=== PATIENT | female | born 1995 | race African-American/Black ===

== ENCOUNTER 2017-04-20 18:24 | Emergency (ER) | payer MEDICAID ==
[~2017-04-20] VITALS: Ht 160 cm; Wt 69.0 kg
[2017-04-20 23:35] LABS: BASOPHILS % 0.3 % (0.0-2.0); EOSINOPHILS % 1.6 % (0.0-5.0); HEMATOCRIT. 33.2 % (36.0-48.0); HEMOGLOBIN. 11.1 g/dL (12.0-16.0); LYMPHOCYTES % 46.1 % (20.0-50.0); MEAN CORPUSCULAR HEMOGLOBIN 28.9 pg (28.0-32.0); MEAN CORPUSCULAR VOLUME 86.3 fL (81.0-99.0); MEAN PLATELET VOLUME 8.2 fl (7.4-10.4); PLATELET 284 x1000/uL (130-400); RED BLOOD CELL COUNT 3.84 mill/uL (4.2-5.4); RED CELL DISTRIBUTION WIDTH 13.6 % (11.6-14.6)
[2017-04-20 23:41] LABS: CHLORIDE 101 mEq/L (98-107)
[2017-04-20 23:48] LABS: CARBON DIOXIDE 28 mEq/L (21-32)
[2017-04-21 02:30] VITALS: BP 118/75
== END 2017-04-21 02:42 | disposition home or self-care (01) ==
LOC: ER 23:38
DX: R07.9 Chest pain, unspecified (principal)
CPT/HCPCS: 36415; 71010; 80048; 81025; 85025; 85379; 93005; 99285; Z7610

== ENCOUNTER 2018-09-10 16:39 | Emergency (ER) | payer MEDICAID ==
[~2018-09-10] VITALS: Ht 160 cm; Wt 80.0 kg
[2018-09-10 19:45] VITALS: BP 129/70
[2018-09-10] MEDS ORDERED: ACETAMINOPHEN 325MG TABLET PO ONE (20:30)
== END 2018-09-10 21:21 | disposition home or self-care (01) ==
LOC: ER 16:39
DX: O99.89 Other specified diseases and conditions complicating pregnancy, childbirth and the puerperium (principal); M26.602 Left temporomandibular joint disorder, unspecified; Z3A.10 10 weeks gestation of pregnancy
CPT/HCPCS: 99282